=== PATIENT | male | born 1995 | race Asian ===

== ENCOUNTER 2019-04-27 12:01 | Emergency (ER) | payer OTHER ==
[~2019-04-27] VITALS: Wt 60.7 kg
[2019-04-27 12:07] VITALS: BP 136/88; PULSE 87; RESP 17
[2019-04-27] MEDS ORDERED: IBUP-1561 PO (14:15)
--- NOTE | 2019-04-27 14:18 | ERD ---
ER Documentation Chief Complaint Chief Complaint LEFT ARM INJURY S/P FALL, SWELLING NOTED, NO KO, HAPPENED LAST NIGHT HPI 23-year-old male presents with pain in his left forearm since last night. He fell or tripped while carrying a fish tank. He did not want a break fish tank and landed directly on his left forearm. He has mild swelling and pain in the left forearm distally in the distal third. He has no restricted range of motion weakness. Denies head injury, neck injury, additional injuries. ROS All systems reviewed and are negative except as per history of present illness. Medications Home Meds Active Scripts Ibuprofen* (Motrin*) 400 Mg Tab, 400 MG PO Q6, #15 TAB Prov:JOHNY MCCALL MD 04/27/19 PMhx/Soc Medical and Surgical Hx: pt denies Medical Hx, pt denies Surgical Hx Hx Alcohol Use: No Hx Substance Use: No Hx Tobacco Use: No Smoking Status: Never smoker FmHx Family History: No diabetes, No coronary disease, No other Physical Exam Vitals Vital Signs Date Temp Pulse Resp B/P (MAP) Pulse Ox O2 O2 Flow FiO2 Time Delivery Rate 04/27/19 99.2 87 17 136/88 100 12:07 (104) Physical Exam Const: No acute distress Head: Atraumatic Eyes: Normal Conjunctiva ENT: Normal External Ears, Nose and Mouth. Neck: Full range of motion. No meningismus. Resp: Clear to auscultation bilaterally Cardio: Regular rate and rhythm, no murmurs Abd: Soft, non tender, non distended. Normal bowel sounds Skin: No petechiae or rashes Back: No midline or flank tenderness Ext: No cyanosis, or edema mild tenderness and swelling of the left distal third forearm dorsally. No deformities, restricted range of motion. No weakness,, deficits, erythema, bleeding. No wrist or snuffbox tenderness. Neur: Awake and alert Psych: Normal Mood and Affect Procedures/MDM X-ray left forearm 2V Interpreted by me: Bones: No fracture Joints: No dislocation Foreign body: None. Impression-normal left forearm x-ray Presents with signs and symptoms of left forearm contusion or sprain. Is no signs of fracture, dislocation, ischemia or deficits or infection. Patient was placed in a left wrist Velcro brace and was neurovascular intact after the brace. Discharged home with return precautions and primary care follow-up. Return sooner for fevers, redness, new worsening symptoms with primary doctor as directed. The patient was stable with no new complaints during the ER course. Clinically, there is no current evidence to suggest meningitis, sepsis, acute abdomen, pneumonia, stroke, acute coronary syndrome, pulmonary embolism, aortic dissection or any other emergent condition appearing to require further evaluation or hospitalization. Patient counseled regarding my diagnostic im pression and care plan. Prior to discharge all questions answered. Pt agrees with treatment plan and understands strict return precautions. Pt is instructed to follow up with primary care provider within 24-48 hours. Precautionary instructions provided including instructions to return to the ER if not improving or for any worsening or changing symptoms or concerns. Disclaimer: Inadvertent spelling and grammatical errors are likely due to EHR/dictation software use and do not reflect on the overall quality of patient care. Also, please note that the electronic time recorded on this note does not necessarily reflect the actual time of the patient encounter. Departure Diagnosis: Primary Impression: Injury of upper extremity Encounter type: initial encounter Laterality: right Qualified Codes: S49.91XA - Unspecified injury of right shoulder and upper arm, initial encounter Condition: Stable Patient Instructions: Contusion, Upper Extremity Additional Instructions: X-ray read as normal. Likely contusion or sprain. Recheck for fevers, redness, new or worsening symptoms. Follow-up with primary doctor for persistent pain next week. Recheck otherwise for new or worsening symptoms. JOHNY MCCALL MD April 27, 2019 14:18
== END 2019-04-27 14:31 | disposition home or self-care (01) ==
LOC: FTE 12:01
DX: S49.91XA Unspecified injury of right shoulder and upper arm, initial encounter (principal); W01.0XXA Fall on same level from slipping, tripping and stumbling without subsequent striking against object, initial encounter; Y92.9 Unspecified place or not applicable
CPT/HCPCS: 29125; 73090; Z7502